=== PATIENT | male | born 1945 | race Caucasian/White ===

== ENCOUNTER 2016-05-03 22:25 | Emergency (ER) | payer MEDICARE, MEDICAID, OTHER, SELFPAY ==
--- NOTE | 2016-05-03 22:56 | EDM.PDOC ---
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 denies head/neck injury/pain. Right Lower Mid-Anterior Chest Pain Score (Numeric/FACES): 6 - Related Data Allergies Allergy/AdvReac Type Severity Reaction Status Date / Time Penicillins Allergy Cannot Verified 05/03/16 22:42 Remember Home Meds: Home Meds Lisinopril [Lisinopril] 10 mg PO DAILY 02/23/16 [History] Past Medical History - Past Health History Medical/Surgical History: Denies Medical/Surgical History HEENT History: Reports: Impaired vision Cardiovascular History: Reports: Hypertension Other Gastrointestinal History: abdominal abcess Genitourinary History: Reports: Prostate disorder Musculoskeletal History: Reports: Back pain, chronic Other Musculoskeletal History: right rotator cuff tear, Low back pain, djd Other Psychiatric History: tobacco abuse, mental retardation Other Dermatologic History: itchy skin- diagnosis from clinic - Past Surgical History GI Surgical History: Reports: Cholecystectomy, Colostomy, Hernia, abdominal Musculoskeletal Surgical History: Reports: None Social & Family History - Family History Family Medical History: Noncontributory - Tobacco Use Smoking Status *Q: Former Smoker Years of Tobacco use: 50 Used Tobacco, but Quit: No Second Hand Smoke Exposure: Yes - Caffeine Use Caffeine Use: Reports: Coffee, Tea - Alcohol Use Days Per Week of Alcohol Use: 0 - Recreational Drug Use Recreational Drug Use: No ED ROS GENERAL - Review of Systems Review Of Systems: ROS reveals no pertinent complaints other than HPI. ED EXAM, GENERAL - Physical Exam Exam: See Below Exam Limited By: No limitations General Appearance: alert, WD/WN, mild distress, other (pain) Ears: hearing grossly normal Throat/Mouth: Normal voice, No airway compromise Head: atraumatic Neck: non-tender, full range of motion Respiratory/Chest: no respiratory distress, splinting, other (right lower rib pain). No: accessory muscle use, retractions Cardiovascular: regular rate, rhythm GI/Abdominal: soft, non tender Neurological: alert, oriented, normal cognition, normal gait, no motor/sensory deficits Psychiatric: normal affect, normal mood Skin Exam: Warm, Dry Lymphatic: no adenopathy Course - Vital Signs Last Recorded V/S: Last Vital Signs Temp 36.3 C 05/03/16 22:31 Pulse 80 05/03/16 22:31 Resp 17 05/03/16 22:31 BP 146/109 H 05/03/16 22:31 Pulse Ox 98 05/03/16 22:31 - Re-Assessments/Exams Free Text/Narrative Re-Assessment/Exam: 05/04/16 00:14 results discussed with Pt. Departure - Departure Time of Disposition: 00:14 Disposition: Home, Self-Care 01 Condition: good Clinical Impression: Fracture, rib Qualifiers: Encounter type: initial encounter Rib fracture type: single rib Fracture type: closed Laterality: right Qualified Code(s): S22.31XA - Fracture of one rib, right side, initial encounter for closed fracture Instructions: Rib Fracture, [id number] Forms: ED Department Discharge Additional Instructions: 1) avoid straining bending lifting for 2 weeks 2) follow up with family doctor or recheck as needed rx given: vicodin 5/325 bid prn x 6
[2016-05-04] MEDS ORDERED: Acetaminophen/HYDROcodone 325-10 MG Tab ONE (00:14)
[2016-05-04] MEDS ORDERED: Acetaminophen/HYDROcodone 325-10 MG Tab PO ONE (00:14)
[2016-05-04 00:29] VITALS: BP 152/97
== END 2016-05-04 00:22 | disposition home or self-care (01) ==
LOC: DL.ED 22:25
DX: S22.31XA Fracture of one rib, right side, initial encounter for closed fracture (principal); I10 Essential (primary) hypertension; Z88.0 Allergy status to penicillin; Z90.49 Acquired absence of other specified parts of digestive tract; Z87.891 Personal history of nicotine dependence; W18.2XXA Fall in (into) shower or empty bathtub, initial encounter
CPT/HCPCS: 71101; 99283; A9270

== ENCOUNTER 2016-09-12 20:00 | Emergency (ER) | payer MEDICARE, MEDICAID ==
[2016-09-12 20:12] VITALS: BP 145/82
--- NOTE | 2016-09-12 20:39 | EDM.PDOC ---
ED HPI GENERAL MEDICAL PROBLEM - General Chief Complaint: Lower Extremity Injury/Pain Stated Complaint: FOOT IS HURTING, [id number] Time Seen by Provider: 09/12/16 20:35 Source of Information: Reports: Patient History Limitations: Reports: Physical Impairment (cognitive impairment) - History of Present Illness INITIAL COMMENTS - FREE TEXT/NARRATIVE: c/o pain to left foot, undetermined length of time, has not taken anything OTC to manage pain. Denied injury. Remote surgery but unsure what for or when. Left Feet Pain Score (Numeric/FACES): 7 - Related Data Allergies Allergy/AdvReac Type Severity Reaction Status Date / Time Penicillins Allergy Cannot Verified 09/12/16 20:10 Remember Home Meds: Home Meds Lisinopril [Lisinopril] 10 mg PO DAILY 02/23/16 [History] Furosemide [Lasix] 20 mg PO DAILY 09/12/16 [History] Oxybutynin 15 mg PO DAILY 09/12/16 [History] Past Medical History - Past Health History Medical/Surgical History: Denies Medical/Surgical History HEENT History: Reports: Impaired Vision Cardiovascular History: Reports: Hypertension Other Gastrointestinal History: abdominal abcess Genitourinary History: Reports: Prostate Disorder, Urinary Incontinence Musculoskeletal History: Reports: Back Pain, Chronic Other Musculoskeletal History: right rotator cuff tear, Low back pain, djd Other Psychiatric History: tobacco abuse, mental retardation Other Dermatologic History: itchy skin- diagnosis from clinic - Past Surgical History GI Surgical History: Reports: Cholecystectomy, Colostomy, Hernia, Abdominal Social & Family History - Family History Family Medical History: Noncontributory - Tobacco Use Smoking Status *Q: Unknown Ever Smoked Years of Tobacco use: 50 Used Tobacco, but Quit: No Second Hand Smoke Exposure: No - Caffeine Use Caffeine Use: Reports: Coffee, Soda Caffeine Use Comment: occassional use - Alcohol Use Days Per Week of Alcohol Use: 0 - Recreational Drug Use Recreational Drug Use: No Review of Systems - Review of Systems Review Of Systems: See Below Constitutional: Reports: No Symptoms Eyes: Reports: No Symptoms Ears: Reports: No Symptoms Nose: Reports: No Symptoms Mouth/Throat: Reports: No Symptoms Respiratory: Reports: No Symptoms Cardiovascular: Reports: Edema (1+pedal) Musculoskeletal: Reports: Foot Pain Skin: Reports: No Symptoms ED EXAM, GENERAL - Physical Exam Exam: See Below Exam Limited By: No Limitations General Appearance: Alert, No Apparent Distress, Obese (morbid) Eye Exam: Bilateral Eye: EOMI Ears: Normal External Exam Nose: Normal Inspection Throat/Mouth: Normal Inspection Head: Atraumatic, Normocephalic Respiratory/Chest: No Respiratory Distress, Lungs Clear Cardiovascular: Normal Peripheral Pulses Extremities: Normal Inspection, Normal Range of Motion, Other (left foot pain, remote well healed surgical scar fore foot, between 3rd and 4th metatarsal) Course - Vital Signs Last Recorded V/S: Last Vital Signs Temp 97.7 F 09/12/16 20:11 Pulse 18 L 09/12/16 20:11 Resp 18 09/12/16 20:11 BP 145/82 H 09/12/16 20:11 Pulse Ox 98 09/12/16 20:11 - Orders/Labs/Meds Meds: Medications Discontinued Medications Generic Name Dose Route Start Last Admin Trade Name Julien PRN Reason Stop Dose Admin Acetaminophen 650 mg 09/12/16 20:43 09/12/16 21:12 Tylenol PO 09/12/16 20:44 650 mg NOW ONE Administration - Radiology Interpretation Free Text/Narrative:: left foot: negative for fracture. - Re-Assessments/Exams Free Text/Narrative Re-Assessment/Exam: Patient informed results of negative findings of xray. Instructed to manage pain with tylenol, and elevate extremities to decrease swelling. Patient relates his desire to just go to bed here as recently had to get rid of bed and chair due to bed bugs. Departure - Departure Time of Disposition: 21:50 Disposition: Home, Self-Care 01 Condition: Good Clinical Impression: Foot pain, left - Discharge Information Instructions: Flat Feet Forms: ED Department Discharge Additional Instructions: follow up with primary care tylenol every 4 hours as needed for pain elevate extremity low salt/ sodium diet
[2016-09-12] MEDS ORDERED: Acetaminophen 325 MG Tab PO ONE (20:43)
== END 2016-09-12 21:51 | disposition home or self-care (01) ==
LOC: DL.ED 20:00
DX: M79.672 Pain in left foot (principal); I10 Essential (primary) hypertension; Z88.0 Allergy status to penicillin; Z79.899 Other long term (current) drug therapy; Z90.49 Acquired absence of other specified parts of digestive tract
CPT/HCPCS: 73620; 99283; A9270; 99282

== ENCOUNTER 2016-11-10 14:14 | Emergency (ER) | payer MEDICARE, MEDICAID ==
[2016-11-10 15:56] VITALS: BP 160/85
--- NOTE | 2016-11-10 18:21 | EDM.PDOC ---
<Juve Gaytan - Last Filed: 11/10/16 18:56> ED HPI GENERAL MEDICAL PROBLEM - General Chief Complaint: Back Pain or Injury Stated Complaint: BACK PAIN Time Seen by Provider: 11/10/16 18:19 Source of Information: Reports: Patient History Limitations: Reports: No Limitations - History of Present Illness INITIAL COMMENTS - FREE TEXT/NARRATIVE: 71 yo male presents with left flank pain "for a while". States that he is having increased urinary frequency and pain is mostly on left flank. Denies fever or pain elsewhere. No other complaints Onset: Unknown/Unsure Duration: Getting Worse Location: Reports: Back Quality: Reports: Ache Severity: Moderate Improves with: Reports: None Worsens with: Reports: Movement Associated Symptoms: Reports: No Other Symptoms Back Pain Score (Numeric/FACES): 5 - Related Data Allergies Allergy/AdvReac Type Severity Reaction Status Date / Time Penicillins Allergy Cannot Verified 09/12/16 20:10 Remember Home Meds: Home Meds Lisinopril [Lisinopril] 10 mg PO DAILY 02/23/16 [History] Furosemide [Lasix] 20 mg PO DAILY 09/12/16 [History] Oxybutynin 15 mg PO DAILY 09/12/16 [History] Past Medical History - Past Health History Medical/Surgical History: Denies Medical/Surgical History HEENT History: Reports: Impaired Vision Cardiovascular History: Reports: Hypertension Other Gastrointestinal History: abdominal abcess Genitourinary History: Reports: Prostate Disorder, Urinary Incontinence Musculoskeletal History: Reports: Back Pain, Chronic Other Musculoskeletal History: right rotator cuff tear, Low back pain, djd Other Psychiatric History: tobacco abuse, mental retardation Other Dermatologic History: itchy skin- diagnosis from clinic - Past Surgical History GI Surgical History: Reports: Cholecystectomy, Colostomy, Hernia, Abdominal Social & Family History - Family History Family Medical History: Noncontributory - Tobacco Use Smoking Status *Q: Light Tobacco Smoker Years of Tobacco use: 40 Packs/Tins Daily: 0.1 Used Tobacco, but Quit: No Second Hand Smoke Exposure: No - Caffeine Use Caffeine Use: Reports: Coffee, Soda Caffeine Use Comment: occassional use - Alcohol Use Days Per Week of Alcohol Use: 0 - Recreational Drug Use Recreational Drug Use: No ED ROS GENERAL - Review of Systems Review Of Systems: ROS reveals no pertinent complaints other than HPI. ED EXAM,LOWER BACK PAIN/INJURY - Physical Exam Exam: See Below Exam Limited By: No Limitations General Appearance: Alert, WD/WN, No Apparent Distress Neck: Normal Inspection, Supple, Non-Tender, Full Range of Motion Respiratory/Chest: No Respiratory Distress, Lungs Clear, Normal Breath Sounds, No Accessory Muscle Use, Chest Non-Tender Cardiovascular: Normal Peripheral Pulses, Regular Rate, Rhythm, No Edema, No Gallop, No JVD, No Murmur, No Rub GI/Abdominal: Normal Bowel Sounds, Soft, Non-Tender, No Distention, No Abnormal Bruit, Hernia Back Exam: Normal Inspection, Full Range of Motion, CVA Tenderness (L) Neurological: Alert, Normal Mood/Affect, Normal Dorsiflexion, CN II-XII Intact, Normal Plantar Flexion, Normal Gait, No Motor/Sensory Deficits, Oriented x 3 Skin Exam: Warm, Dry, Intact, Normal Color, No Rash Course - Vital Signs Last Recorded V/S: Last Vital Signs Temp 36.4 C 11/10/16 15:55 Pulse 70 11/10/16 15:55 Resp 16 11/10/16 15:55 BP 160/85 H 11/10/16 15:55 Pulse Ox 98 11/10/16 15:55 - Orders/Labs/Meds Orders: Active Orders 24 hr Category Date Time Status Abdomen 2V AP Flat Upright [CR] Urgent Exams 11/10/16 18:18 Taken UA W/MICROSCOPIC [URIN] Stat Lab 11/10/16 18:18 Ordered Labs: Laboratory Tests 11/10/16 11/10/16 11/10/16 Range/Units 18:25 18:25 19:09 WBC 7.3 (5.0-10.0) 10^3/uL RBC 4.82 (4.6-6.2) 10^6/uL Hgb 14.7 (14.0-18.0) g/dL Hct 45.0 (40.0-54.0) % MCV 93.4 (80-100) fL MCH 30.5 (27.0-34.0) pg MCHC 32.7 L (33.0-35.0) g/dL Plt Count 181 (150-450) 10^3/uL Neut % (Auto) 68.1 (42.2-75.2) % Lymph % (Auto) 21.1 (20.5-50.1) % Coke % (Auto) 7.3 (2-8) % Eos % (Auto) 3.1 H (1.0-3.0) % Baso % (Auto) 0.4 (0.0-1.0) % Sodium 140 (135-145) mmol/L Potassium 4.1 (3.6-5.0) mmol/L Chloride 106 (101-111) mmol/L Carbon Dioxide 24.0 (21.0-31.0) mmol/L Anion Gap 14.1 BUN 27 H (7-18) mg/dL Creatinine 1.0 (0.6-1.3) mg/dL Est Cr Clr Drug Dosing 62.91 mL/min Estimated GFR (MDRD) > 60 BUN/Creatinine Ratio 27.00 Glucose 103 (74-105) mg/dL Calcium 9.2 (8.4-10.2) mg/dl Total Bilirubin 0.7 (0.2-1.0) mg/dL AST 23 (10-42) IU/L ALT 20 (10-60) IU/L Alkaline Phosphatase 83 (42-121) IU/L Total Protein 7.2 (6.7-8.2) g/dl Albumin 4.3 (3.2-5.5) g/dl Globulin 2.9 Albumin/Globulin Ratio 1.48 Urine Color Yellow (YELLOW) Urine Appearance Clear (CLEAR) Urine pH 5.5 (5.0-9.0) Ur Specific [place] >= 1.030 (1.005-1.030) Urine Protein Trace H (NEGATIVE) Urine Glucose (UA) Negative (NEGATIVE) Urine Ketones Negative (NEGATIVE) Urine Occult Blood Negative (NEGATIVE) Urine Nitrite Negative (NEGATIVE) Urine Bilirubin Negative (NEGATIVE) Urine Urobilinogen 0.2 (0.2-1.0) mg/dL Ur Leukocyte Esterase Negative (NEGATIVE) Meds: Medications Discontinued Medications Generic Name Dose Route Start Last Admin Trade Name Freq PRN Reason Stop Dose Admin Cyclobenzaprine HCl 10 mg 11/10/16 19:22 Flexeril PO 11/10/16 19:23 ONETIME ONE Departure - Departure Disposition: Home, Self-Care 01 Clinical Impression: Lumbar paraspinal muscle spasm - Discharge Information Instructions: Back Pain, Adult, [id number] Forms: ED Department Discharge Additional Instructions: 1) rest and avoid bending lifting straining 2) try ice or heat to sore areas 3) see family doctor Saturday for possible senior living evaluation rx given; flexeril 10mg bid prn x 6 <Paul Rodriguez - Last Filed: 11/10/16 19:27> Course - Re-Assessments/Exams Free Text/Narrative Re-Assessment/Exam: 11/10/16 19:23 results discussed with pt in regards to possible senior living evaluation by his PMD. Departure - Departure Time of Disposition: 19:25 Condition: Good
[2016-11-10 18:49] LABS: CHLORIDE,CL 106 mmol/L (101-111); SODIUM,NA 140 mmol/L (135-145)
[2016-11-10] MEDS ORDERED: Cyclobenzaprine 10 MG Tab PO ONE (19:22)
== END 2016-11-10 19:32 | disposition home or self-care (01) ==
LOC: DL.ED 14:14
DX: M62.830 Muscle spasm of back (principal); I10 Essential (primary) hypertension; F17.210 Nicotine dependence, cigarettes, uncomplicated; Z90.49 Acquired absence of other specified parts of digestive tract; Z98.890 Other specified postprocedural states; Z79.899 Other long term (current) drug therapy; Z88.0 Allergy status to penicillin
CPT/HCPCS: 36415; 74000; 80053; 81001; 85025; 99283; A9270

== ENCOUNTER 2016-11-28 15:01 | Emergency (ER) | payer MEDICARE, MEDICAID ==
[2016-11-28 15:17] VITALS: BP 154/88
--- NOTE | 2016-11-28 15:36 | EDM.PDOC ---
ED HPI GENERAL MEDICAL PROBLEM - General Chief Complaint: General Stated Complaint: PSYCH ISSUES Time Seen by Provider: 11/28/16 15:20 Source of Information: Reports: Patient, Police, RN, RN Notes Reviewed History Limitations: Reports: Altered Mental Status - History of Present Illness INITIAL COMMENTS - FREE TEXT/NARRATIVE: Pt presents to the ER per [facility] deputy. Pt has a legal guardian and arrangements have been made for the pt to be transported to the [facility] in [place]. Legal guardian Yasmine, states the pt has not been taking his medication. Psych history per Jackie from [facility] includes "untreated psych issues, unspecified schizophrenia spectrum and other psychotic disorder". - Related Data Allergies Allergy/AdvReac Type Severity Reaction Status Date / Time Penicillins Allergy Cannot Verified 09/12/16 20:10 Remember Home Meds: Home Meds Lisinopril [Lisinopril] 10 mg PO DAILY 02/23/16 [History] Furosemide [Lasix] 20 mg PO DAILY 09/12/16 [History] Oxybutynin 15 mg PO DAILY 09/12/16 [History] Past Medical History - Past Health History Medical/Surgical History: Denies Medical/Surgical History HEENT History: Reports: Impaired Vision Other HEENT History: wears glasses Cardiovascular History: Reports: Hypertension Other Gastrointestinal History: abdominal abcess Genitourinary History: Reports: Prostate Disorder, Urinary Incontinence Musculoskeletal History: Reports: Back Pain, Chronic Other Musculoskeletal History: right rotator cuff tear, Low back pain, djd Other Psychiatric History: tobacco abuse, mental retardation Other Dermatologic History: itchy skin- diagnosis from clinic - Past Surgical History GI Surgical History: Reports: Cholecystectomy, Colostomy, Hernia, Abdominal Social & Family History - Family History Family Medical History: Noncontributory - Tobacco Use Smoking Status *Q: Unknown Ever Smoked Years of Tobacco use: 40 Packs/Tins Daily: 0.1 Used Tobacco, but Quit: No Tobacco Use Comment: states he has not been smoking. Second Hand Smoke Exposure: No - Caffeine Use Caffeine Use: Reports: None Caffeine Use Comment: occassional use - Alcohol Use Days Per Week of Alcohol Use: 0 - Recreational Drug Use Recreational Drug Use: No ED ROS GENERAL - Review of Systems Review Of Systems: ROS reveals no pertinent complaints other than HPI. ED EXAM, GENERAL - Physical Exam Exam: See Below Exam Limited By: Altered Mental Status General Appearance: Alert, WD/WN, No Apparent Distress Eye Exam: Bilateral Eye: Normal Inspection, PERRL Ears: Normal External Exam, Hearing Grossly Normal Nose: Normal Inspection Throat/Mouth: Normal Inspection, Normal Oropharynx, Normal Voice, No Airway Compromise Head: Atraumatic, Normocephalic Neck: Normal Inspection, Supple, Non-Tender, Full Range of Motion Respiratory/Chest: No Respiratory Distress, Lungs Clear, Normal Breath Sounds, No Accessory Muscle Use, Chest Non-Tender Cardiovascular: Normal Peripheral Pulses, Regular Rate, Rhythm, No Edema, No Gallop, No JVD, No Murmur, No Rub Peripheral Pulses: 2+: Radial (L), Radial (R) GI/Abdominal: Normal Bowel Sounds, Soft, Non-Tender, Other (large abdomen with several scars from past surgeries. ) (Male) Exam: Deferred Rectal (Males) Exam: Deferred Back Exam: Normal Inspection, Full Range of Motion Extremities: Normal Inspection, Normal Range of Motion, Non-Tender, No Pedal Edema, Normal Capillary Refill Neurological: Alert, Oriented, Inattentive. No: Normal Cognition Psychiatric: Other Skin Exam: Warm, Dry, Intact, Normal Color Lymphatic: No Adenopathy (thoughts are flighting, changing subjects suddenly and frequently.) Course - Vital Signs Last Recorded V/S: Last Vital Signs Temp 97.6 F 11/28/16 15:05 Pulse 95 11/28/16 15:05 Resp 18 11/28/16 15:05 BP 154/88 H 11/28/16 15:05 Pulse Ox 97 11/28/16 15:05 - Orders/Labs/Meds Labs: Laboratory Tests 11/28/16 11/28/16 11/28/16 Range/Units 15:23 15:23 15:23 WBC 6.9 (5.0-10.0) 10^3/uL RBC 5.00 (4.6-6.2) 10^6/uL Hgb 15.2 (14.0-18.0) g/dL Hct 45.9 (40.0-54.0) % MCV 91.8 (80-100) fL MCH 30.4 (27.0-34.0) pg MCHC 33.1 (33.0-35.0) g/dL Plt Count 183 (150-450) 10^3/uL Neut % (Auto) 74.8 (42.2-75.2) % Lymph % (Auto) 17.0 L (20.5-50.1) % Larue % (Auto) 5.5 (2-8) % Eos % (Auto) 2.3 (1.0-3.0) % Baso % (Auto) 0.4 (0.0-1.0) % Sodium 138 (135-145) mmol/L Potassium 3.8 (3.6-5.0) mmol/L Chloride 104 (101-111) mmol/L Carbon Dioxide 24.0 (21.0-31.0) mmol/L Anion Gap 13.8 BUN 25 H (7-18) mg/dL Creatinine 1.0 (0.6-1.3) mg/dL Est Cr Clr Drug Dosing 65.18 mL/min Estimated GFR (MDRD) > 60 BUN/Creatinine Ratio 25.00 Glucose 136 H (74-105) mg/dL Calcium 9.7 (8.4-10.2) mg/dl Magnesium 2.0 (1.8-2.5) mg/dL Total Bilirubin 0.7 (0.2-1.0) mg/dL AST 23 (10-42) IU/L ALT 22 (10-60) IU/L Alkaline Phosphatase 81 (42-121) IU/L Total Protein 7.1 (6.7-8.2) g/dl Albumin 4.3 (3.2-5.5) g/dl Globulin 2.8 Albumin/Globulin Ratio 1.54 TSH, Ultra Sensitive 1.06 (0.45-5.33) uIu/mL Urine Color (YELLOW) Urine Appearance (CLEAR) Urine pH (5.0-9.0) Ur Specific [place] (1.005-1.030) Urine Protein (NEGATIVE) Urine Glucose (UA) (NEGATIVE) Urine Ketones (NEGATIVE) Urine Occult Blood (NEGATIVE) Urine Nitrite (NEGATIVE) Urine Bilirubin (NEGATIVE) Urine Urobilinogen (0.2-1.0) mg/dL Ur Leukocyte Esterase (NEGATIVE) Urine RBC /HPF Urine WBC (0-5/HPF) /HPF Ur Epithelial Cells /HPF Urine Bacteria (0-FEW/HPF) /HPF Hyaline Casts /LPF Urine Mucus /LPF Salicylates < 4 Urine Opiates Screen (NEGATIVE) Ur Oxycodone Screen (NEGATIVE) Urine Methadone Screen (NEGATIVE) Acetaminophen < 10 Ur Barbiturates Screen (NEGATIVE) U Tricyclic Antidepress (NEGATIVE) Ur Phencyclidine Scrn (NEGATIVE) Ur Amphetamine Screen (NEGATIVE) U Methamphetamines Scrn (NEGATIVE) Urine MDMA Screen (NEGATIVE) U Benzodiazepines Scrn (NEGATIVE) Urine Cocaine Screen (NEGATIVE) U Marijuana (THC) Screen (NEGATIVE) Ethyl Alcohol < 5 mg/dL 11/28/16 11/28/16 Range/Units 15:40 15:40 WBC (5.0-10.0) 10^3/uL RBC (4.6-6.2) 10^6/uL Hgb (14.0-18.0) g/dL Hct (40.0-54.0) % MCV (80-100) fL MCH (27.0-34.0) pg MCHC (33.0-35.0) g/dL Plt Count (150-450) 10^3/uL Neut % (Auto) (42.2-75.2) % Lymph % (Auto) (20.5-50.1) % Larue % (Auto) (2-8) % Eos % (Auto) (1.0-3.0) % Baso % (Auto) (0.0-1.0) % Sodium (135-145) mmol/L Potassium (3.6-5.0) mmol/L Chloride (101-111) mmol/L Carbon Dioxide (21.0-31.0) mmol/L Anion Gap BUN (7-18) mg/dL Creatinine (0.6-1.3) mg/dL Est Cr Clr Drug Dosing mL/min Estimated GFR (MDRD) BUN/Creatinine Ratio Glucose (74-105) mg/dL Calcium (8.4-10.2) mg/dl Magnesium (1.8-2.5) mg/dL Total Bilirubin (0.2-1.0) mg/dL AST (10-42) IU/L ALT (10-60) IU/L Alkaline Phosphatase (42-121) IU/L Total Protein (6.7-8.2) g/dl Albumin (3.2-5.5) g/dl Globulin Albumin/Globulin Ratio TSH, Ultra Sensitive (0.45-5.33) uIu/mL Urine Color Yellow (YELLOW) Urine Appearance Clear (CLEAR) Urine pH 5.5 (5.0-9.0) Ur Specific [place] >= 1.030 (1.005-1.030) Urine Protein 30 H (NEGATIVE) Urine Glucose (UA) Negative (NEGATIVE) Urine Ketones Negative (NEGATIVE) Urine Occult Blood Negative (NEGATIVE) Urine Nitrite Negative (NEGATIVE) Urine Bilirubin Negative (NEGATIVE) Urine Urobilinogen 0.2 (0.2-1.0) mg/dL Ur Leukocyte Esterase Negative (NEGATIVE) Urine RBC 0-5 /HPF Urine WBC 0-5 (0-5/HPF) /HPF Ur Epithelial Cells Rare /HPF Urine Bacteria Few (0-FEW/HPF) /HPF Hyaline Casts Rare H /LPF Urine Mucus Moderate H /LPF Salicylates Urine Opiates Screen Negative (NEGATIVE) Ur Oxycodone Screen Negative (NEGATIVE) Urine Methadone Screen Negative (NEGATIVE) Acetaminophen Ur Barbiturates Screen Negative (NEGATIVE) U Tricyclic Antidepress Negative (NEGATIVE) Ur Phencyclidine Scrn Negative (NEGATIVE) Ur Amphetamine Screen Negative (NEGATIVE) U Methamphetamines Scrn Negative (NEGATIVE) Urine MDMA Screen Negative (NEGATIVE) U Benzodiazepines Scrn Negative (NEGATIVE) Urine Cocaine Screen Negative (NEGATIVE) U Marijuana (THC) Screen Negative (NEGATIVE) Ethyl Alcohol mg/dL - Re-Assessments/Exams Free Text/Narrative Re-Assessment/Exam: 11/28/16 16:13 Provider to provider report called to Dr. Wiley at [facility]. Departure - Departure Time of Disposition: 16:08 Disposition: DC/Tfer to Psych Hosp/Unit 65 Condition: Fair Clinical Impression: Schizophrenia spectrum disorder with psychotic disorder type not yet determined - Discharge Information Forms: ED Department Discharge, Interfacility Transfer EMTALA Additional Instructions: Patient is medically stable to be transferred to [facility] in [place], [place].
[2016-11-28 15:50] LABS: CHLORIDE,CL 104 mmol/L (101-111); SODIUM,NA 138 mmol/L (135-145)
[2016-11-28 15:51] LABS: ACETAMINOPHEN < 10
== END 2016-11-28 16:15 ==
LOC: DL.ED 15:01
DX: F23 Brief psychotic disorder (principal); I10 Essential (primary) hypertension; Z88.0 Allergy status to penicillin; Z79.899 Other long term (current) drug therapy
CPT/HCPCS: 36415; 80053; 80305; 81001; 83735; 84443; 85025; 99284; G0480

== ENCOUNTER 2017-02-03 02:31 | Emergency (ER) | payer MEDICARE, MEDICAID ==
[2017-02-03] MEDS ORDERED: Succinylcholine 200 MG/10 ML MDV IV ONE (02:32)
[2017-02-03] MEDS ORDERED: Rocuronium 50 MG/5 ML Vial IV ONE (02:32)
[2017-02-03] MEDS ORDERED: Etomidate 2 MG/ML 20 ML SDV IVPUSH ONE (02:32)
--- NOTE | 2017-02-03 02:33 | EDM.PDOC ---
ED HPI GENERAL MEDICAL PROBLEM - General Chief Complaint: Respiratory Problem Stated Complaint: AMBULANCE Time Seen by Provider: 02/03/17 02:29 Source of Information: Reports: Custodial Records, Provider History Limitations: Reports: Altered Mental Status - History of Present Illness INITIAL COMMENTS - FREE TEXT/NARRATIVE: sent from [place] for respiratory distress. EMS arrived noticed O2 sat @ 68%, non RB placed O2 sat @ 88%. 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 daughter arrived states Pt was in [facility], then had [place] sent to [place] had DVT then sent to [place]. tonight pt became unresponsive. daughter wishes full code. - Related Data Allergies Allergy/AdvReac Type Severity Reaction Status Date / Time Penicillins Allergy Cannot Verified 02/03/17 02:48 Remember Home Meds: Home Meds Lisinopril [Lisinopril] 10 mg PO DAILY 02/23/16 [History] Furosemide [Lasix] 20 mg PO DAILY 09/12/16 [History] Oxybutynin 15 mg PO DAILY 09/12/16 [History] Past Medical History - Past Health History Medical/Surgical History: Denies Medical/Surgical History HEENT History: Reports: Impaired Vision Other HEENT History: wears glasses Cardiovascular History: Reports: Hypertension Other Gastrointestinal History: abdominal abcess Genitourinary History: Reports: Prostate Disorder, Urinary Incontinence Musculoskeletal History: Reports: Back Pain, Chronic Other Musculoskeletal History: right rotator cuff tear, Low back pain, djd Other Psychiatric History: tobacco abuse, mental retardation Other Dermatologic History: itchy skin- diagnosis from clinic - Past Surgical History GI Surgical History: Reports: Cholecystectomy, Colostomy, Hernia, Abdominal Social & Family History - Family History Family Medical History: Noncontributory - Tobacco Use Smoking Status *Q: Unknown Ever Smoked Years of Tobacco use: 40 Packs/Tins Daily: 0.1 Used Tobacco, but Quit: No Second Hand Smoke Exposure: No - Caffeine Use Caffeine Use: Reports: None Caffeine Use Comment: occassional use - Alcohol Use Days Per Week of Alcohol Use: 0 - Recreational Drug Use Recreational Drug Use: No ED ROS GENERAL - Review of Systems Review Of Systems: ROS reveals no pertinent complaints other than HPI. ED EXAM, GENERAL - Physical Exam Exam: See Below Exam Limited By: Altered Mental Status General Appearance: Other (unresponsive) Eye Exam: Bilateral Eye: PERRL (ess ER @ 3mm) Ears: Normal External Exam Throat/Mouth: No Airway Compromise Head: Atraumatic Neck: Normal Inspection Respiratory/Chest: Rhonchi, Other (spont resp) Cardiovascular: Regular Rate, Rhythm GI/Abdominal: No Distention, No Abnormal Bruit Neurological: Unresponsive Skin Exam: Cool Lymphatic: No Adenopathy Course - Vital Signs Last Recorded V/S: Last Vital Signs Temp 36.7 C 02/03/17 02:35 Pulse 88 02/03/17 02:35 Resp 27 H 02/03/17 02:35 BP 109/62 02/03/17 02:35 Pulse Ox 87 L 02/03/17 02:35 - Orders/Labs/Meds Orders: Active Orders 24 hr Category Date Time Status Chest wo Cont [CT] Urgent Exams 02/03/17 02:48 Ordered Head wo Cont [CT] Urgent Exams 02/03/17 02:48 Ordered CULTURE BLOOD [BC] Stat Lab 02/03/17 02:29 Ordered UA W/MICROSCOPIC [URIN] Stat Lab 02/03/17 02:48 Ordered Labs: Laboratory Tests 02/03/17 02/03/17 02/03/17 Range/Units 02:20 02:20 02:20 WBC 14.0 H (5.0-10.0) 10^3/uL RBC 4.19 L (4.6-6.2) 10^6/uL Hgb 12.5 L D (14.0-18.0) g/dL Hct 40.1 (40.0-54.0) % MCV 95.7 D (80-100) fL MCH 29.8 (27.0-34.0) pg MCHC 31.2 L (33.0-35.0) g/dL Plt Count 350 D (150-450) 10^3/uL Neut % (Auto) 94.7 H (42.2-75.2) % Lymph % (Auto) 2.6 L (20.5-50.1) % Graham % (Auto) 2.6 (2-8) % Eos % (Auto) 0.0 L (1.0-3.0) % Baso % (Auto) 0.1 (0.0-1.0) % PT (9.0-12.0) SEC INR (0.9-1.2) D-Dimer, Quantitative 1070 H (0-400) ng/mL Sodium 141 (135-145) mmol/L Potassium 4.7 (3.6-5.0) mmol/L Chloride 104 (101-111) mmol/L Carbon Dioxide 30.0 (21.0-31.0) mmol/L Anion Gap 11.7 BUN 118 H D (7-18) mg/dL Creatinine 1.9 H (0.6-1.3) mg/dL Est Cr Clr Drug Dosing TNP Estimated GFR (MDRD) 35 BUN/Creatinine Ratio 62.10 Glucose 187 H (74-105) mg/dL Lactic Acid (0.5-2.2) mmol/L Calcium 9.8 (8.4-10.2) mg/dl Total Bilirubin 0.3 (0.2-1.0) mg/dL AST 51 H (10-42) IU/L ALT 70 H (10-60) IU/L Alkaline Phosphatase 110 (42-121) IU/L Troponin I 0.09 H* (0.00-0.02) ng/ml B-Natriuretic Peptide 18 (0-100) pg/ml Total Protein 7.4 (6.7-8.2) g/dl Albumin 3.9 (3.2-5.5) g/dl Globulin 3.5 Albumin/Globulin Ratio 1.11 02/03/17 02/03/17 Range/Units 02:20 02:20 WBC (5.0-10.0) 10^3/uL RBC (4.6-6.2) 10^6/uL Hgb (14.0-18.0) g/dL Hct (40.0-54.0) % MCV (80-100) fL MCH (27.0-34.0) pg MCHC (33.0-35.0) g/dL Plt Count (150-450) 10^3/uL Neut % (Auto) (42.2-75.2) % Lymph % (Auto) (20.5-50.1) % Graham % (Auto) (2-8) % Eos % (Auto) (1.0-3.0) % Baso % (Auto) (0.0-1.0) % PT 31.5 H D (9.0-12.0) SEC INR 3.1 H (0.9-1.2) D-Dimer, Quantitative (0-400) ng/mL Sodium (135-145) mmol/L Potassium (3.6-5.0) mmol/L Chloride (101-111) mmol/L Carbon Dioxide (21.0-31.0) mmol/L Anion Gap BUN (7-18) mg/dL Creatinine (0.6-1.3) mg/dL Est Cr Clr Drug Dosing Estimated GFR (MDRD) BUN/Creatinine Ratio Glucose (74-105) mg/dL Lactic Acid 1.5 (0.5-2.2) mmol/L Calcium (8.4-10.2) mg/dl Total Bilirubin (0.2-1.0) mg/dL AST (10-42) IU/L ALT (10-60) IU/L Alkaline Phosphatase (42-121) IU/L Troponin I (0.00-0.02) ng/ml B-Natriuretic Peptide (0-100) pg/ml Total Protein (6.7-8.2) g/dl Albumin (3.2-5.5) g/dl Globulin Albumin/Globulin Ratio Meds: Medications Discontinued Medications Generic Name Dose Route Start Last Admin Trade Name Freq PRN Reason Stop Dose Admin Pantoprazole Sodium Confirm 02/03/17 03:29 Protonix Iv Administered 02/03/17 03:30 Dose 120 mg .ROUTE .STK-MED ONE - Re-Assessments/Exams Free Text/Narrative Re-Assessment/Exam: 02/03/17 03:22 NG tube placed with dark brown blood return. 02/03/17 03:[address] Dodge @ [facility] who kindly accepted pt. Departure - Departure Time of Disposition: 04:00 Disposition: DC/Tfer to Acute Hospital 02 Condition: Poor Clinical Impression: Upper GI bleed, Unresponsive state, Hypoxemia, Schizophrenia spectrum disorder with psychotic disorder type not yet determined, Elevated troponin, Elevated d- dimer - Discharge Information Forms: Interfacility Transfer EMTALA - My Orders Last 24 Hours: My Active Orders 02/03/17 02:29 CULTURE BLOOD [BC] Stat 02/03/17 02:48 Chest wo Cont [CT] Urgent Head wo Cont [CT] Urgent UA W/MICROSCOPIC [URIN] Stat - Assessment/Plan Last 24 Hours: My Active Orders 02/03/17 02:29 CULTURE BLOOD [BC] Stat 02/03/17 02:48 Chest wo Cont [CT] Urgent Head wo Cont [CT] Urgent UA W/MICROSCOPIC [URIN] Stat
[2017-02-03 02:38] VITALS: BP 109/62
[2017-02-03 02:49] LABS: CHLORIDE,CL 104 mmol/L (101-111); SODIUM,NA 141 mmol/L (135-145)
--- NOTE | 2017-02-03 03:25 | PCM.SN ---
- Free Text/Narrative Note: ER intubation. requesting Pt to be intubated R/T resp distress. Telephone consent obtained per staff. Pt on 100% NRB w O2 sats 86%, RR in 30's w poor air exchange. Pt medicated w 5 mg Rocuronium, 12 mg etomidate, 70 mg Anectine, cords visualized w Glidescope but not open. Pt redosed w 100 mg Anectine, 8.0 ETT placed w use of glidescope, Pos ETCO2 change, BBS and fogging noted. Tube secured at 23 CM at lip Pt transferred to radiology for imaging. Report to
[2017-02-03] MEDS ORDERED: Pantoprazole 40 MG Vial ONE (03:29)
[2017-02-03] MEDS ORDERED: Pantoprazole 80 MG in Sodium Chloride 0.9% 100 ML IV ONE (04:22)
[2017-02-03] MEDS ORDERED: Sodium Chloride 0.9% 1,000 ML IV SCH (04:30)
[2017-02-03] MEDS ORDERED: DOPamine/Dextrose 5%-Water 400 MG/250 ML BAG IV SCH (04:30)
[2017-02-03] MEDS ORDERED: DOPamine/Dextrose 5%-Water 400 MG/250 ML BAG ONE (05:17)
== END 2017-02-03 04:25 ==
LOC: DL.ED 02:31
DX: F29 Unspecified psychosis not due to a substance or known physiological condition (principal); K92.2 Gastrointestinal hemorrhage, unspecified; R09.02 Hypoxemia; R79.89 Other specified abnormal findings of blood chemistry; Z88.0 Allergy status to penicillin; Z79.899 Other long term (current) drug therapy
CPT/HCPCS: 36415; 70450; 71010; 71250; 80053; 83605; 83880; 84484; 85025; 85379; 85610; 87040; 96361; 96365; 96367; 96368; 96376; 99285; C9113; J0330; J1265; J7030; J7050; 31500

== ENCOUNTER 2017-02-03 04:49 | Emergency (ER) | payer MEDICARE, MEDICAID ==
[2017-02-03] MEDS ORDERED: EPINEPHrine 1:10,000 1 MG/10 ML Syringe IV ONE (04:50)
--- NOTE | 2017-02-03 05:00 | EDM.PDOC ---
ED HPI GENERAL MEDICAL PROBLEM - General Stated Complaint: er Time Seen by Provider: 02/03/17 04:55 Source of Information: Reports: EMS History Limitations: Reports: Other (cpr) - History of Present Illness INITIAL COMMENTS - FREE TEXT/NARRATIVE: pt was being transf to [facility] via [facility] flight and arrested. EMS gave 3x epi with CPR without resumption of spont activity. pt arrived asystole and cpr continued with defib + Rx. pcr d/c upon no resumption of spont activity. - Related Data Allergies Allergy/AdvReac Type Severity Reaction Status Date / Time Penicillins Allergy Cannot Verified 02/03/17 02:48 Remember Home Meds: Home Meds Lisinopril [Lisinopril] 10 mg PO DAILY 02/23/16 [History] Furosemide [Lasix] 20 mg PO DAILY 09/12/16 [History] Oxybutynin 15 mg PO DAILY 09/12/16 [History] Past Medical History - Past Health History Medical/Surgical History: Denies Medical/Surgical History HEENT History: Reports: Impaired Vision Other HEENT History: wears glasses Cardiovascular History: Reports: Hypertension Respiratory History: Reports: Other (See Below) Other Respiratory History: possible PE Other Gastrointestinal History: abdominal abcess Genitourinary History: Reports: Prostate Disorder, Urinary Incontinence Musculoskeletal History: Reports: Back Pain, Chronic Other Musculoskeletal History: right rotator cuff tear, Low back pain, djd Other Psychiatric History: tobacco abuse, mental retardation Other Dermatologic History: itchy skin- diagnosis from clinic - Past Surgical History GI Surgical History: Reports: Cholecystectomy, Colostomy, Hernia, Abdominal Social & Family History - Family History Family Medical History: Noncontributory - Tobacco Use Smoking Status *Q: Unknown Ever Smoked Years of Tobacco use: 40 Packs/Tins Daily: 0.1 Used Tobacco, but Quit: No Second Hand Smoke Exposure: No - Caffeine Use Caffeine Use: Reports: None Caffeine Use Comment: occassional use - Alcohol Use Days Per Week of Alcohol Use: 0 - Recreational Drug Use Recreational Drug Use: No ED ROS GENERAL - Review of Systems Review Of Systems: ROS reveals no pertinent complaints other than HPI. ED EXAM, CPR - Physical Exam Exam: See Below Limited By: Other (cpr) General Appearance: Other (cpr) Respiratory Chest: Other (cpr) Cardiovascular: Other (cpr) Neurological: Other (cpr) Departure - Departure Time of Disposition: 04:59 Disposition: 20 Preliminary Cause of *Q: Cardiac Arrest Clinical Impression: Cardiopulmonary resuscitation (CPR)-only resuscitation status - Discharge Information
[2017-02-03] MEDS ORDERED: EPINEPHrine 1:10,000 1 MG/10 ML Syringe ONE (05:06)
== END 2017-02-03 09:50 | disposition expired ==
LOC: DL.ED 04:49
DX: I46.9 Cardiac arrest, cause unspecified (principal); I10 Essential (primary) hypertension; Z88.0 Allergy status to penicillin; Z79.899 Other long term (current) drug therapy; F29 Unspecified psychosis not due to a substance or known physiological condition; K92.2 Gastrointestinal hemorrhage, unspecified; R09.02 Hypoxemia; R79.89 Other specified abnormal findings of blood chemistry
CPT/HCPCS: 31500; 36415; 70450; 71010; 71250; 80053; 83605; 83880; 84484; 85025; 85379; 85610; 87040; 92950; 96361; 96365; 96367; 96368; 96376; 99284; 99285; C9113; J0171; J0330; J1265; J7030; J7050